=== PATIENT | female | born 1985 | race Caucasian/White ===

== ENCOUNTER 2018-07-11 13:30 | Emergency (ER) | payer SELFPAY ==
[~2018-07-11] VITALS: Ht 154.9 cm; Wt 74.0 kg
[2018-07-11 13:51] VITALS: BP 107/66; PULSE 68; RESP 18; Ht 154.9 cm; Wt 74.0 kg
[2018-07-11] MEDS ORDERED: CEPHALEXIN 500 MG CAP PO ONE (15:00)
[2018-07-11] MEDS ORDERED: CEPH-443 PO (15:12)
[2018-07-11] MEDS ORDERED: ACET-141 PO (15:12)
--- NOTE | 2018-07-11 15:17 | ERD ---
ER Documentation Chief Complaint Chief Complaint LEFT ARM PAIN/NUMB X 2 HOURS AGO; PT FELL ; KO FOR FEW SECONDS HPI 32-year-old female presents with left shoulder pain. She states that the pain starts in her neck and radiates to her left upper extremities. She states that she fell while walking today. She believes she may have passed out for a few seconds. Currently she is only complains of left shoulder pain. She denies headache, visual changes, vomiting, deficits, fever, abdominal pain, additional complaints. She denies any inciting events. She denies any previous history of syncope, cardiopulmonary conditions. ROS All systems reviewed and are negative except as per history of present illness. Medications Home Meds Active Scripts Acetaminophen* (Acetaminophen*) 500 MG Extra Strength Tablet, 500 MG PO Q4H PRN for PAIN AND OR ELEVATED TEMP, #15 TAB Prov:ERROL ASIF MD 07/11/18 Cephalexin* (Keflex*) 500 Mg Capsule, 500 MG PO QID for 5 Days, CAP Prov:ERROL ASIF MD 07/11/18 Allergies Allergies: Coded Allergies: No Known Allergy (Unverified , 07/11/18) PMhx/Soc Medical and Surgical Hx: pt denies Medical Hx History of Surgery: Yes (C/S) Anesthesia Reaction: No Hx Alcohol Use: No Hx Substance Use: No Hx Tobacco Use: No Smoking Status: Never smoker FmHx Family History: No diabetes, No coronary disease, No other Physical Exam Vitals Vital Signs Date Temp Pulse Resp B/P (MAP) Pulse Ox O2 O2 Flow FiO2 Time Delivery Rate 07/11/18 98.4 68 18 107/66 98 13:51 (80) Physical Exam Const: No acute distress Head: Atraumatic Eyes: Normal Conjunctiva ENT: Normal External Ears, Nose and Mouth. Neck: Full range of motion. No meningismus. Resp: Clear to auscultation bilaterally Cardio: Regular rate and rhythm, no murmurs Abd: Soft, non tender, non distended. Normal bowel sounds Skin: No petechiae or rashes Back: No midline or flank tenderness Ext: No cyanosis, or edema. Tenderness primarily left trapezius area. No midline tenderness or deformities of the cervical spine. No appreciable tenderness of the shoulder capsule, elbow, wrist. Left upper extremity is n eurovascular intact. Neur: Awake and alert normal gait. No appreciable focal neurologic deficits. No cerebellar signs. No pronator drift. Psych: Normal Mood and Affect Results 24 hrs Laboratory Tests Test 07/11/18 14:27 07/11/18 14:29 07/11/18 14:31 Urine Color YELLOW Urine Clarity SLIGHTLY CLOUDY Urine pH 6.0 Urine Specific [place] 1.012 Urine Ketones NEGATIVE mg/dL Urine Nitrite NEGATIVE mg/dL Urine Bilirubin NEGATIVE mg/dL Urine Urobilinogen NEGATIVE mg/dL Urine Leukocyte Esterase TRACE Mimi/ul Urine Microscopic RBC 1 /HPF Urine Microscopic WBC 8 /HPF Urine Squamous Epithelial Cells FEW /HPF Urine Hemoglobin NEGATIVE mg/dL Urine Glucose NEGATIVE mg/dL Urine Total Protein NEGATIVE mg/dl Bedside Glucose 83 mg/dL POC Beta HCG, Qualitative NEGATIVE Current Medications Medications Dose Sig/Drea Start Time Status Last (Trade) Ordered Route PRN Stop Time Admin Dose Reason Admin Cephalexin 500 mg ONCE ONCE 07/11/18 DC 07/11/18 (Keflex) PO 15:00 07/11/18 15:00 15:01 Procedures/MDM EKG: Rate/Rhythm: Normal Sinus Rhythm rate equals 71 QRS, ST, T-waves: No changes consistent w/ acute ischemia Impression: No evidence of ischemia or arrhythmia Chest X-ray 1V Interpreted by me: Soft Tissue: No acute abnormalities Bones: No acute abnormalities Mediastinum/Cardiac Silhouette/Lungs: No acute abnormalities impression-normal chest x-ray X-ray C spine 3V Interpreted by me: Bones: No fracture Joints: No dislocation Foreign body: None Impression-normal cervical spine x-ray Recheck 83. hCG negative. Presents with signs and symptoms of left arm pain rating from the neck after falling today. She has no signs of fracture, dislocation, neurologic deficit. She believes she may have had a syncopal episode but currently has a normal exam is asymptomatic. She has no signs to suggest intracranial bleeding, fracture, neurologic deficit, arrhythmia, cardiac chest pain, PE, additional concerning signs or symptoms. She does have signs of mild UTI and will treat for this with Keflex, recommendations for fluids, rest, primary care follow-up and return precautions. The patient was stable with no new complaints during the ER course. Clinically, there is no current evidence to suggest meningitis, sepsis, acute abdomen, pneumonia, stroke, acute coronary syndrome, pulmonary embolism, aortic dissection or any other emergent condition appearing to require further evaluation or hospitalization. Patient counseled regarding my diagnostic impr ession and care plan. Prior to discharge all questions answered. Pt agrees with treatment plan and understands strict return precautions. Pt is instructed to follow up with primary care provider within 24-48 hours. Precautionary instructions provided including instructions to return to the ER if not improving or for any worsening or changing symptoms or concerns. Disclaimer: Inadvertent spelling and grammatical errors are likely due to EHR/dictation software use and do not reflect on the overall quality of patient care. Also, please note that the electronic time recorded on this note does not necessarily reflect the actual time of the patient encounter. Departure Diagnosis: Primary Impression: Syncope Syncope type: unspecified Qualified Codes: R55 - Syncope and collapse Additional Impression: Shoulder injury Encounter type: initial encounter Laterality: left Qualified Codes: S49.92XA - Unspecified injury of left shoulder and upper arm, initial encounter Patient Instructions: Urinary Tract Infections in Women, Causes of Syncope, Shoulder Sprain Additional Instructions: hay poquito infeccion en orina. otro examines normal hoy. Cheque otro vez con m[facility]grath doctor primario en el proximo suero or regresa para mas o nueva simptomas. ERROL ASIF MD Jul 11, 2018 15:17
== END 2018-07-11 15:32 | disposition home or self-care (01) ==
LOC: FTE 13:30
DX: S49.92XA Unspecified injury of left shoulder and upper arm, initial encounter (principal); R55 Syncope and collapse; W18.39XA Other fall on same level, initial encounter; Y92.9 Unspecified place or not applicable
CPT/HCPCS: 71045; 72040; 81001; 81025; 82962; 93005